=== PATIENT | female | born 1940 | race Caucasian/White ===

== ENCOUNTER 2018-12-10 11:51 | Inpatient (IN) ==
[2018-12-10] MEDS ORDERED: Morphine Inj 4 MG/ML Vial IV.PUSH ONE (12:05)
--- NOTE | 2018-12-10 12:12 | ED ---
HPI General Chief Complaint: STEMI Alert Stated Complaint: chest tightness/jaw pain x 2 days Time Seen by Provider: 12/10/18 11:55 Source: patient Mode of arrival: ambulatory Limitations: no limitations History of Present Illness MD complaint: Reports chest pain STEMI Alert: Yes Onset (ago): day(s) (2) Time: 03:00 Duration: constant (But it does wax and wane) Onset: during rest Pain location: Reports substernal Severity: mild Severity scale (1-10): 2 Quality: Reports tightness Pain radiation: Reports jaw/teeth Relieving factors: nothing Exacerbating factors: nothing Context: Denies recent illness, recent surgery, recent immobilization, recent travel, trauma/injury, new medications and history of DVT/PE Associated symptoms: Denies nausea, vomiting, diaphoresis and dyspnea Treatments prior to arrival chest pain: Reports none Related Data Home Medications Medication Instructions Recorded Confirmed levothyroxine 125 mcg PO DAILY 12/10/18 12/10/18 losartan 25 mg PO HS 12/10/18 12/10/18 Allergies Allergy/AdvReac Type Severity Reaction Status Date / Time No Known Allergies Allergy Verified 12/10/18 11:59 Review of Systems ROS: all other systems reviewed are negative [facility] Medical History Medical History Hypertension (Acute) Hypothyroid (Acute) Surgical History Surgical History Hx of appendectomy (Acute) Hx of dilation and curettage (Acute) Hx of laparoscopy (Acute) Hx of tonsillectomy (Acute) Social History Social History Substance History: No History of Abuse Second Hand Smoke Exposure: No Smoking Status: Former smoker How Often Do You Have a Drink Containing Alcohol: 4 or more times a week Immunization History Tetanus Immunization: Unsure Exam Const General: cooperative, healthy appearing and comfortable Orientation: alert, awake and oriented x3 HENMT Head: normal to inspection, normocephalic and atraumatic Eyes General: appearance normal, both eyes and all related structures Conjunctivae: conjunctivae normal Sclera: sclerae normal EOM: EOM intact bilaterally Neck Neck: normal visual inspection and full ROM Chest Chest: normal inspection of the chest Resp Effort & Inspection: normal respiratory effort and able to speak in complete sentences Auscultation: clear to auscultation bilaterally Cardio Rate: regular rate Rhythm: regular rhythm GI Inspection: normal to inspection Palpation: soft Back/Spine/Pelvis Cervical Spine: cervical ROM normal Thoracic/Lumbar Spine: thoraco-lumbar ROM normal Skin General: no rashes or lesions noted, turgor normal and dry skin Neuro General: alert, awake, oriented x3, moves all extremities and CN's II-XI intact bilaterally Extrem General: normal to inspection, full ROM and no pedal edema Psych Appearance: grossly normal Mental Status: mental status grossly normal Speech and Movement: speech and movement normal Mood: congruent mood Affect: normal affect Attitude: cooperative Thought Process: normal Thought Content: normal Judgment: judgment good Course Initial Documented Vital Signs Temperature 98.1 F 12/10/18 11:59 Pulse Rate 88 12/10/18 11:59 Respiratory Rate 18 12/10/18 11:59 Blood Pressure 137/70 12/10/18 11:59 Pulse Oximetry 96 12/10/18 11:59 Last Documented Vital Signs Temperature 98.1 F 12/10/18 11:59 Pulse Rate 88 12/10/18 11:59 Respiratory Rate 18 12/10/18 11:59 Blood Pressure 137/70 12/10/18 11:59 Pulse Oximetry 95 12/10/18 12:02 Critical Care Time Critical Care Time: Yes Total Critical Care Time: 25 Attestation: Time to perform other separately billable procedures was not included in the critical care time. My time did not include minutes spent treating any other patients simultaneously or on activities that did not directly contribute to the patient's treatment. The services I provided to this patient were to treat and/or prevent clinically significant deterioration due to acute inferior OR I provided critical care services requiring my management, as noted below: Chart data review, documentation time, medication orders and management, vital sign assessments/reviewing monitor data, ordering and reviewing lab tests, ordering and interpreting/reviewing x-rays and diagnostic studies, care of the patient and discussion of the patient with the admitting physicians Quality Measure Queries AMI Clinical Trial Participant: No ECG initial impression date: 12/10/18 ECG initial impression time: 11:55 Medical Decision Making MDM Narrative Medical decision making narrative: This is an 78-year-old patient who lives at home with her and takes care of her own ADLs who presents with a 2-day history of chest pain. It radiates to the jaw. It is continuous but does wax and wane. Her EKG shows a STEMI. She has been given aspirin. I have ordered morphine and Zofran for symptomatic relief. The patient is being taken to the [facility]. Medical Screen Exam Complete: Yes Emergency Medical Condition: Yes Differential Diagnosis Differential Diagnosis: Differential diagnosis of chest pain includes but is not limited to musculoskeletal pain, pulmonary embolism, acute coronary syndrome , pneumonia, pleurisy Lab Data Result diagrams: 12/10/18 12:05 12/10/18 12:05 Imaging Data Radiologist's impression: Chest X-Ray 12/10/18 12:02 CONCLUSION: No acute cardiopulmonary disease. ECG Data EKG Prior to Arrival: No Attestation: I personally reviewed and interpreted this ECG as follows: (Normal sinus rhythm with a rate of 87. She has ST segment elevation in the inferior leads.) Discharge Plan Discharge Disposition Patient Disposition: ED Admit(ED Internal Use Only) Discharge Order Discharge Orders: ED Use Only Admit Order (Routine); Ordered 12/10/18 Ordered By: Sahara Mark Discharge Details Diagnosis: ST elevation myocardial infarction (STEMI) Physicians Team ED Provider: Sahara Mark Rxs /Orders / Referrals /Forms Prescriptions: No Action levothyroxine 125 mcg Tablet 125 mcg PO DAILY RF: 0 losartan 25 mg Tablet 25 mg PO HS RF: 0 Discharge Instructions Patient Printed Instructions: Chest Pain (ED) Status ED Status: With Doctor
[2018-12-10] MEDS ORDERED: Heparin 10,000 UNITS/10 ML Vial (for IV use) ONE ×2 (12:13→12:21)
[2018-12-10] MEDS ORDERED: Nitroglycerin Drip Premix 0 MG/0 ML BOTTLE ONE (12:13)
--- NOTE | 2018-12-10 12:15 | XR ---
EXAM DATE: 12/10/2018 12:11 PM EST AGE/SEX: 78 years / Female INDICATIONS: STEMI ALERT. CLINICAL DATA: This is the patient's initial encounter. Patient reports that signs and symptoms have been present for 1 day and indicates a pain score of 6/10. MEDICAL/SURGICAL HISTORY: Hypertension. Hypothyroidism. Appendectomy. Tonsillectomy. COMPARISON: No prior exams available for comparison. FINDINGS: A single AP view of the chest demonstrates the lungs to be symmetrically aerated without evidence of mass, infiltrate or effusion. The cardiomediastinal contours are unremarkable. Osseous structures a re intact. CONCLUSION: No acute cardiopulmonary disease. Electronically signed by: Luke Cordero MD Board Certified Radiologist 12/10/2018 12:14 PM EST
[2018-12-10 12:18] LABS: Baso # (Auto) 0.1 th/mm3 (0.0-0.2); Baso % (Auto) 0.9 % (0.0-2.0); Eos # (Auto) 0.1 th/mm3 (0.0-0.4); Eos % (Auto) 0.7 % (0.0-4.0); Hematocrit 39.4 % (35.0-46.0); Hemoglobin 13.3 gm/dL (11.6-15.3); Lymph % (Auto) 24.5 % (9.0-44.0); Mean Corpuscular HGB Conc 33.7 % (32.0-36.0); Mean Corpuscular Hemoglobin 31.1 pg (27.0-34.0); Mean Corpuscular Volume 92.2 fL (80.0-100.0); Mean Platelet Volume 8.6 fL (7.0-11.0); Mono # (Auto) 0.5 th/mm3 (0.0-0.9); Mono % (Auto) 6.8 % (0.0-8.0); Neut # (Auto) 5.4 th/mm3 (1.8-7.7); Neut % (Auto) 67.1 % (16.0-70.0); Platelet Count 194 th/mm3 (150-450); Red Blood Count 4.28 mil/mm3 (4.00-5.30); White Blood Count 8.1 th/mm3 (4.0-11.0)
[2018-12-10] MEDS ORDERED: fentaNYL Citrate Inj 100 MCG/2 ML Ampul ONE ×2 (12:21→13:45)
[2018-12-10] MEDS ORDERED: Heparin/NS PF Inj 1,000 ML ONE ×2 (12:21→13:38)
[2018-12-10 12:27] LABS: Chloride 105 meq/L (98-107); Potassium 3.5 meq/L (3.5-5.1); Sodium 140 meq/L (136-145)
[2018-12-10 12:30] LABS: Albumin 3.8 g/dL (3.4-5.0); Anion Gap 7 meq/L (5-15); Blood Urea Nitrogen 14 mg/dL (7-18); Calcium 9.2 mg/dL (8.5-10.1); Carbon Dioxide 28.1 meq/L (21.0-32.0); Glucose,Random 108 mg/dL (74-106)
[2018-12-10 12:33] LABS: Alanine Aminotransferase 28 U/L (10-53); Aspartate Aminotransferase 66 U/L (15-37); Glomerular Filtration Rate 89 mL/min (>89)
[2018-12-10 12:35] LABS: Total Protein 7.3 g/dL (6.4-8.2)
[2018-12-10 12:36] LABS: Alkaline Phosphatase 103 U/L (45-117)
[2018-12-10 12:43] LABS: Troponin I 5.77 ng/mL (0.02-0.05)
[2018-12-10] MEDS ORDERED: Iohexol 350 MG/ML 100 ML Vial (for Cath Lab) IVCONTRAST ONE (13:15)
[2018-12-10] MEDS ORDERED: NITROPRUSSIDE 50 MG/2 ML ONE (13:18)
[2018-12-10] MEDS ORDERED: Tirofiban Inj 12,500 MCG/250 ML PLAST..BAG ONE (13:27)
[2018-12-10] MEDS ORDERED: Misc Info for Pharmacy OTHER STA (13:40)
[2018-12-10] MEDS ORDERED: Tirofiban Inj 12,500 MCG/250 ML PLAST..BAG IV.CONT SCH (14:00)
[2018-12-10] MEDS ORDERED: TIROFIBAN BOLUS IV.SIG ONE (14:05)
--- NOTE | 2018-12-10 14:16 | MB ---
cc: Elijah Biggs MD DATE: 12/10/2018 HISTORY OF PRESENT ILLNESS: Leigh is a very pleasant 78-year-old lady with history of hypertension. She developed chest pain on 12/08/2018; did not come to the ER until today 12/10/2018. I received a STEMI alert at 12:02 p.m. today. In the cathode maker, the patient appears to be in mild to moderate distress, still having chest pain. Otherwise, denies any fevers, chills, cough; GI or bleeding, PND, orthopnea, syncope or dizziness. PAST MEDICAL HISTORY: Per History of Present Illness. Also has a history of hypothyroidism. PAST SURGICAL HISTORY: Appendectomy, dilatation and curettage, laparoscopy, tonsillectomy. ALLERGIES: NONE. MEDICATIONS PRIOR TO ADMISSION: 1. Losartan 25 mg daily. 2. Levothyroxine 125 mcg daily. SOCIAL HISTORY: She is a former smoker. Currently, denies tobacco use. Drinks alcohol 4 or more times a week. MEDICATIONS: Received in the ER; aspirin 324 x1. PHYSICAL EXAMINATION: VITAL SIGNS: Temperature 98.1, pulse 88, blood pressure 137/70, respiratory rate 18, sats 95% on room air. GENERAL: She is alert and oriented x3, in mild to moderate distress. NECK: Supple. No JVD. No bruit. CARDIOVASCULAR: S1, S2. No murmurs, rubs, gallops. LUNGS: Clear to auscultation bilaterally. ABDOMEN: Soft, nontender, nondistended with positive bowel sounds. EXTREMITIES: Lower extremity edema. LABORATORY DATA: White count 8.1, hemoglobin 13.3, hematocrit 39.4, platelet count 194. Sodium 140, potassium 3.5, chloride 105, bicarbonate 28.1, BUN 14, creatinine 0.64, glucose 108, AST 66. Troponin 5.77. DIAGNOSTIC DATA: Her EKG shows normal sinus rhythm at 87 beats per minute. There are Q-waves in lead II, III, aVF; ST-elevation of 2 mm - 3 mm in lead II, III, aVF, slight ST depression V2, also 0.[address] segment elevation in V5, V6. IMAGING: Chest x-ray, no acute cardiopulmonary disease. DIAGNOSES: 1. Subacute ST-elevation myocardial infarction. 2. Hypertension. 3. Hypothyroidism. DISCUSSION: The patient received aspirin at [place] [facility]. PLAN: Emergent left heart catheterization. STEMI alert, has been called. I discussed the case with the ER physician at [place]. MD BRICE Falcon/merced , 01:40 PM , 01:47 PM
--- NOTE | 2018-12-10 14:30 | CATHPROC ---
[facility] HIS Report Study Information Study Number Admission Scheduled Start Study Start [id number] Dec 10 2018 11:51AM 12/10/2018 Dec 10 2018 12:10PM [facility] Cardiac Catheterization Admit Source Facility Department Transfer in from another acute care facility [facility] Physician and Clinical Staff Initial Elijah Sanderson Student Financial Aid Manager Fara Santiago RN Student Financial Aid ManagerCatalina Noguera RN Recorder Kassie Salazar,RT(R) (BS) Bernardoub Rhea Shaffer,FREDDIE TECH2 Procedures Performed Procedure Location (Site) Vessel Name Coronary Angiograms LCA Left Coronary Coronary Angiograms RCA Right Coronary L Heart Cath LV Gram-hand inj. 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 Description Size Mfg Part Number Used/Scraped [id number] 13:14 Chikka INTECC WIRE, ASAHI PROWATER 180CM 180CM Used *[id number] TRANSDUCER, TRUWAVE [id number] 12:11 VANEGAS FORBES * Used W/STOCKCOCK *[id number] 538-420 *[id number] 538-420 *[id number] *[id number] 538-421 *[id number] 538-421 *[id number] 12:11 [employer] BLANKET,WARM AIR CCL * Used *[id number] 12:11 [employer] PACK, CCL CUSTOM * Used *[id number] 12:11 [employer] PACER PEN, SKIN DUAL W/ RULER * Used *[id number] 13:14 MEDTRONIC BALLOON, 2.5 X 12MM EUPHORA 12MM Used *[id number] 13:16 MEDTRONIC STENT, 3.0 22 INTEGRITY 3.0 22 Used *[id number] 13:16 CoverMyMeds MEDICAL 30 EMMY INDEFLATOR Used *[id number] 14:15 [employer] MEDICAL SHEATH, FR6.5 PRELUDE 11CM FR 6.5 038ACT Used *[id number] 13:14 [employer] MEDICAL SHEATH, FR6.5 PRELUDE 11CM FR 6.5 038ACT Used *[id number] 12:11 [employer] MEDICAL WIRE, 3MMJ .035 180CM 180CM Used *[id number] 12:11 NAMIC MANIFOLD, 4 PORT * Used *[id number] 12:11 NYCOMED OMNIPAQUE, 350 MG, 150ML 150ML [id number] Used [id number] 12:11 TERUMO MEDICAL SHEATH, FR4 TERUMO (10CM) FR 4 Used *[id number] Equipment Model, Serial, Lot Number and Expiration Data Description Model Number Serial Number Lot Number Expiration Date STENT, 3.0 22 INTEGRITY [id number] 03-08-2020 WIRE, ASAHI PROWATER 180CM [id number] 04-10-2021 History: Current Medications Medication Dosage/Unit Route Frequency Last Date/Time Taken ASA History: Allergies Allergy Reaction No Known Allergies History: Symptoms/Diagnosis Selection Items Chest pain History: Stress Tests Stress or Imaging Studies Performed No History: Other Current Smoker Method Quit Packs a Day No Cigarettes 12 Years Ago 1 Labs Hgb (g/dl) Hct (%) WBC (l/cumm) Platelets (thousands) 11.60-17.00 35.00-51.00 4.00-11.00 150.00-450.00 13.3 39.4 8.1 194 Glucose (mg/dl) BUN (mg/dl) Creatinine (mg/dl) BUN:Creatinine (1:x) 74.00-106.00 7.00-18.00 0.50-1.30 10.00-20.00 108 14 0.6 23.3 Na (meq/l) K (meq/l) 136.00-145.00 3.50-5.10 140 3.5 Troponin I (ng/ml) CPK-MB (ng/ML) 0.02-0.05 0.50-3.60 5.77 Not Drawn Medication Medication Total Dose (Bolus/Oral) Medication Total Dosage/Unit 1% XYLOCAINE 20 mL AGGRASTAT BOLUS 37.5 mL FENTANYL 150 mcg HEPARIN 5500 units PLAVIX 300 mg VERSED 4 mg Medications (Bolus/Oral) Medication Time Given Dosage/Unit Administered By Reason FENTANYL 12/10/2018 1:07:18 PM 25 mcg Fara Santiago 25 mcg FENTANYL given in lab by Fara Santiago, RN via Peripheral IV. FENTANYL 12/10/2018 1:10:37 PM 25 mcg Fara Santiago 25 mcg FENTANYL given in lab by Fara Santiago RN via Peripheral IV. VERSED 12/10/2018 1:10:40 PM 1 mg Fara Santiago 1 mg VERSED given in lab by Fara Santiago RN via Peripheral IV. 1% XYLOCAINE 12/10/2018 1:12:11 PM 20 mL Elijah Biggs 20 mL 1% XYLOCAINE given in lab by Elijah Biggs in Right Groin via Subcutaneous. HEPARIN 12/10/2018 1:15:23 PM 5500 units Fara Santiago 5500 units HEPARIN given in lab by Fara Santiago RN via Peripheral IV. AGGRASTAT BOLUS 12/10/2018 1:26:28 PM 37.5 mL Fara Santiago 37.5 mL AGGRASTAT BOLUS given in lab by Fara Santiago RN via Peripheral IV. PLAVIX 12/10/2018 1:35:36 PM 300 mg Hesher, Catalina 300 mg PLAVIX given in lab by Catalina Penaloza RN via Oral. VERSED 12/10/2018 1:47:24 PM 1 mg Hesher, Catalina 1 mg VERSED given in lab by Catalina Penaloza RN via Peripheral IV. FENTANYL 12/10/2018 1:48:40 PM 25 mcg Hesher, Catalina 25 mcg FENTANYL given in lab by Catalina Penaloza RN via Peripheral IV. FENTANYL 12/10/2018 1:58:59 PM 25 mcg Hesher, Catalina 25 mcg FENTANYL given in lab by Catalina Penaloza RN via Peripheral IV. VERSED 12/10/2018 2:12:20 PM 1 mg Hesher, Catalina 1 mg VERSED given in lab by Catalina Penaloza RN via Peripheral IV. FENTANYL 12/10/2018 2:13:19 PM 25 mcg Hesher, Catalina 25 mcg FENTANYL given in lab by Catalina Penaloza RN via Peripheral IV. VERSED 12/10/2018 2:16:21 PM 1 mg Hesher, Catalina 1 mg VERSED given in lab by Catalina Penaloza RN via Peripheral IV. FENTANYL 12/10/2018 2:17:31 PM 25 mcg Hesher, Catalina 25 mcg FENTANYL given in lab by Catalina Penaloza RN via Peripheral IV. Medication (Drip) Medication Time Given Dosage/Unit Concentration/Unit Diluent (ml) Solution AGGRASTAT DRIP 12/10/2018 1:34:17 PM 0.15 mcg/kg/min 12.5 mg 250 NaCl .9 0.15 mcg/kg/min AGGRASTAT DRIP given in lab by Fara Santiago, LUÍS via Peripheral IV. Pump/Drip Flow = 14.2 ml/hr using NaCl .9 with a concentration of 12.5 mg in 250 ml. IV Solutions 12/10/2018 12:55:21 PM 50 mL (IV) 500 NaCl .9 IV Solutions given in lab by Fara Santiago, LUÍS via Peripheral IV. Pump/Drip Flow using NaCl .9. NIPRIDE 12/10/2018 1:20:40 PM 100 mcg 100 mcg NIPRIDE given in lab by Rhea Shaffer RCIS TECH2 in Right Groin via Intra-coronary. NIPRIDE 12/10/2018 1:21:49 PM 100 mcg 100 mcg NIPRIDE given in lab by Rhea Shaffer RCIS TECH2 in Right Groin via Intra-coronary. Initial Case Assessment Cardiovascular HR Rhythm NIBP Chest Pain 99 stemi 148/84 4 Edema Present Skin color Skin None Normal Warm Dry Circulatory - Right Pulses Dorsalis Pedis Femoral 2 2 Scale (0,1,2,3,4,d) Circulatory - Left Pulses Dorsalis Pedis Femoral 2 2 Scale (0,1,2,3,4,d) Circulatory - Lower Extremities Color Lower Right Color Lower Left Normal Normal Neurological State Oriented to time-place- Alert Moves all extremities person Respiration - General Respiration Rate SpO2 (%) (B/min) 8 100 Chronological Log Time Study Chronological Log 12:05:17 [facility] notified that [facility] is ready. 12:26:20 [facility] notified clinical laboratory medical director they are on the way 12:50:26 Patient arrived via Bed. 12:51:40 Patient Name, D.O.B, / Armband Verified By R.N. 12:51:42 Consent signed by the physician and the patient and verified by the [facility] staff. 12:51:46 Pre-op and post- op instructions given; patient acknowledges understanding of instructions. 12:51:48 Presedation assessment performed by [facility] RN. 12:51:52 Skin Breakdown- 12:51:59 Patient Warmer Placed on the Table. 12:52:01 Disposable Defibrillator pads placed On Patient by clinical laboratory medical director staff. Did not arrive with them on. 12:52:16 Shiv Prominences Protected 12:52:19 A # 18 IV was noted in the Antecubital (left). Grade = 0 12:52:23 History and physical on the chart or being dictated. Assessment: Initial Case, HR=99 BPM, Rhythm=stemi, KQAN=574/84 mmhg, Chest Pain=4, Edema=None, Color=Normal, Skin = Warm, Dry Right Pulses: Eleazar Ped=2, Femoral=2 Left Pulses: Eleazar Ped=2, Femoral=2 12:52:24 Lower Right Extremities: Color=Normal Lower Left Extremities: Color=Normal Neurological: State=Alert, Ox3, SAHNI Respiration: Resp=8 B/min, AmB2=443 % 12:52:25 Table restraints applied according to hospital policy 12:55:21 IV Solutions given in lab by Fraa Santiago, RN via Peripheral IV. Pump/Drip Flow using Na Cl .9. 12:56:00 A # 20 IV was noted in the Forearm (right). Grade = 0 12:57:22 MD paged 12:58:09 MD responded Vitals capture started with the following parameters, Patient=Adult, Interval=5 min, Initial Pr luxpll=956 mmHg, 12:58:55 Deflation Rate=5 mmHg, Cuff placed on Left Arm 12:59:56 HR=81 bpm, WBIU=770/84 mmhg, SpO2=99.0 %, Resp=13 B/min, Pain=4, Alize=10, Oseguera=2 13:01:26 Pressure channel 1 zeroed. 13:02:39 Reference ECG taken 13:05:16 HR=81 bpm, NIBP=97/58 mmhg, VcD8=238.0 %, Resp=13 B/min, Pain=4, Alize=10, Oseguera=2 13:07:18 25 mcg FENTANYL given in lab by Fara Santiago, LUÍS via Peripheral IV. 13:10:23 HR=86 bpm, XHRD=811/97 mmhg, VdQ7=583.0 %, Resp=18 B/min, Pain=4, Alize=10, Oseguera=2 13:10:37 25 mcg FENTANYL given in lab by Fara Santiago, RN via Peripheral IV. 13:10:40 1 mg VERSED given in lab by Fara Santiago, LUÍS via Peripheral IV. 13:10:57 MD arrived Time Out. Correct patient, correct procedure, correct physician, labs, allergies, and equipment verified with clinical laboratory medical director 13:11:56 team present. Fire risk assesment completed (see hard stop sheet for coding). Time Out Conc urred by MD and individual staff in procedure. 13:12:05 Case Start 13:12:11 20 mL 1% XYLOCAINE given in lab by Elijah Biggs in Right Groin via Subcutaneous. 13:12:58 Access site was Right Femoral Artery. 13:13:05 A SHEATH, FR6.5 PRELUDE 11CM FR 6.5 was advanced into the Fem Art (right) using the Percuta neous technique. A JR 4.0 GUIDE CATHETER FR 6 was advanced over a wire. OMNIPAQUE, 350 MG, 150ML 150ML was used for 13:13:43 injections. 13:15:02 HR=80 bpm, RHZM=890/68 mmhg, DlT9=365.0 %, Resp=8 B/min, Pain=4, Alize=10, Oseguera=2 13:15:23 5500 units HEPARIN given in lab by Fara Santiago RN via Peripheral IV. 13:15:33 The RCA was injected and visualized at various angles. OMNIPAQUE, 350 MG, 150ML 150ML used . 13:15:46 OMNIPAQUE, 350 MG, 150ML 150ML and 30 EMMY INDEFLATOR added. 13:16:02 A WIRE, ASAHI PROWATER 180CM 180CM was inserted via Fem Art (right). Recorded Pressure: Ao, HR=79, Condition=Condition 1 13:16:03 (Aorta) Ao 141/62/96 A BALLOON, 2.5 X 12MM EUPHORA 12MM was inserted over WIRE, ASAHI PROWATER 180CM 180CM via the F em Art 13:16:59 (right). A BALLOON, 2.5 X 12MM EUPHORA 12MM over a WIRE, ASAHI PROWATER 180CM 180CM in the RCA Mid was i nflated 13:17:11 using a 30 EMMY INDEFLATOR at 12 emmy for 15 sec. An STENT, 3.0 22 INTEGRITY 3.0 22 Bare Metal Stent was inserted through a JR 4.0 GUIDE CATHETER FR 6 over a 13:18:26 WIRE, Chikka PROWATER 180CM 180CM. A STENT, 3.0 22 INTEGRITY 3.0 22 was deployed using a 30 EMMY INDEFLATOR at 18 atmospheres for 1 5 seconds in 13:18:38 the RCA Mid. 13:19:34 HR=87 bpm, CMTJ=961/65 mmhg, AbW3=883.0 %, Resp=12 B/min, Pain=4, Alize=10, Oseguera=2 13:20:30 ACT (Normal Range 90-180) = 308 13:20:40 100 mcg NIPRIDE given in lab by Rhea Shaffer RCIS TECH2 in Right Groin via Intra-coronary. 13:21:07 Activated Clotting Time Drawn 13:21:49 100 mcg NIPRIDE given in lab by Rhea Shaffer RCIS TECH2 in Right Groin via Intra-coronary. 13:22:34 Wire removed 13::42 Catheter was removed A JR 4.0 INFINITI CATHETER FR 4 was advanced over a wire. OMNIPAQUE, 350 MG, 150ML 150ML was us ed for 13:22:46 injections. Recorded Pressure: LV, HR=83, Condition=Condition 1 13:24:05 (Left Ventricle) LV 128/9/18 13:24:15 The LV was manually injected with 8 cc's and visualized. OMNIPAQUE, 350 MG, 150ML 150ML use d. Recorded Pressure: LV, Ao, HR=78, Condition=Condition 1 13:24:21 (Left Ventricle) LV 131/6/18, (Aorta) Ao 131/60/92 13:24:33 HR=85 bpm, VKBT=907/73 mmhg, TdL9=688.0 %, Resp=15 B/min, Pain=4, Alize=10, Oseguera=2 13:25:29 Catheter was removed A JL 4.0 INFINITI CATHETER FR 4 was advanced over a wire. OMNIPAQUE, 350 MG, 150ML 150ML was us ed for 13:25:31 injections. 13:26:00 The LCA was injected and visualized at various angles. OMNIPAQUE, 350 MG, 150ML 150ML used . 13:26:28 37.5 mL AGGRASTAT BOLUS given in lab by Fara Santiago, LUÍS via Peripheral IV. 13:27:18 Catheter was removed 13:27:22 Case End (Physician broke scrub) 13:28:40 Catheter(s) removed without difficulty 13:28:43 In the Fem Art (right) the SHEATH, FR6.5 PRELUDE 11CM FR 6.[address] by Elijah Prescott. 13:28:57 No case complications noted. 13:29:01 Bedside Report will be given. 13:29:02 Implantable Device card placed in patient's chart. 13:29:05 A Left Heart Cath was performed. 13:29:32 HR=84 bpm, SEDZ=357/73 mmhg, SpO2=99.0 %, Resp=29 B/min, Pain=4, Alize=10, Oseguera=2 0.15 mcg/kg/min AGGRASTAT DRIP given in lab by Fara Santiago, LUÍS via Peripheral IV. Pump/Drip Flow = 14.2 ml/hr 13:34:17 using NaCl .9 with a concentration of 12.5 mg in 250 ml. 13:34:33 QADG=401/78 mmhg, Pain=4, Alize=10, Oseguera=2 13:35:36 300 mg PLAVIX given in lab by Catalina Penaloza, LUÍS via Oral. 13:36:35 Vitals capture stopped. 13:38:21 Patient complaining of chest pain. directed staff to prep patient again so he can take m ore pictures. Vitals capture started with the following parameters, Patient=Adult, Interval=5 min, Initial Pr wunqrw=615 mmHg, 13:39:52 Deflation Rate=5 mmHg, Cuff placed on Left Arm 13:40:28 HR=84 bpm, NLWP=939/82 mmhg, SpO2=96.0 %, Resp=12 B/min, Pain=8, Alize=10, Oseguera=2 13:46:12 HR=82 bpm, SDNP=265/75 mmhg, PnU5=842.0 %, Resp=18 B/min, Pain=8, Alize=10, Oseguera=2 13:47:07 Bilateral groins prepped with 2% chlorhexidine, and draped after a 3 minute waiting time. 13:47:24 1 mg VERSED given in lab by Catalina Penaloza, LUÍS via Peripheral IV. 13:48:40 25 mcg FENTANYL given in lab by Catalina Penaloza RN via Peripheral IV. 13:50:32 HR=82 bpm, OGCW=463/54 mmhg, EaJ5=368.0 %, Resp=7 B/min, Pain=8, Alize=10, Oseguera=2 13:52:34 Pressure channel 1 zeroed. 13:53:38 MD paged 13:55:31 HR=81 bpm, PRMO=024/65 mmhg, SpO2=97.0 %, Resp=10 B/min, Pain=8, Alize=10, Oseguera=2 13:58:59 25 mcg FENTANYL given in lab by Catalina Penaloza, LUÍS via Peripheral IV. 14:00:30 HR=80 bpm, STPQ=290/69 mmhg, SpO2=98.0 %, Resp=20 B/min, Pain=8, Alize=10, Oseguera=2 14:05:29 HR=80 bpm, OIRE=982/76 mmhg, CvO0=178.0 %, Resp=8 B/min, Pain=8, Alize=10, Oseguera=2 14:06:20 MD responded 14:10:32 HR=81 bpm, CMBR=391/72 mmhg, WuT6=001.0 %, Resp=10 B/min, Pain=9, Alize=10, Oseguera=2 14:12:13 Activated Clotting Time Drawn 14:12:20 1 mg VERSED given in lab by Catalina Penaloza RN via Peripheral IV. 14:12:27 MD arrived 14:13:19 25 mcg FENTANYL given in lab by Catalina Penaloza RN via Peripheral IV. A SHEATH, FR6.5 PRELUDE 11CM FR 6.5 was exchanged in the Fem Art (right). This was necessary in order to insure 14:14:37 sterility. A JR 4.0 INFINITI CATHETER FR 4 was advanced over a wire. OMNIPAQUE, 350 MG, 150ML 150ML was us ed for 14:15:01 injections. 14:15:33 HR=79 bpm, LEIQ=931/67 mmhg, SpO2=99.0 %, Resp=10 B/min, Pain=9, Alize=10, Oseguera=2 Recorded Pressure: Ao, HR=81, Condition=Condition 1 14:15:34 (Aorta) Ao 148/72/105 14:16:10 Catheter was removed 14:16:11 ACT (Normal Range 90-180) = 246 14:16:21 1 mg VERSED given in lab by Catalina Penaloza, RN via Peripheral IV. A JL 4.0 INFINITI CATHETER FR 4 was advanced over a wire. OMNIPAQUE, 350 MG, 150ML 150ML was us ed for 14:16:32 injections. 14:17:25 The LCA was injected and visualized at various angles. OMNIPAQUE, 350 MG, 150ML 150ML used . 14:17:31 25 mcg FENTANYL given in lab by Catalina Penaloza, RN via Peripheral IV. 14:17:52 Catheter was removed 14:18:20 Case End (Physician broke scrub) 14:21:09 HR=83 bpm, NIBP=60/25 mmhg, SpO2=98.0 %, Resp=13 B/min, Pain=9, Alzie=10, Oseguera=2 14:22:31 HR=83 bpm, RXUN=779/75 mmhg, SpO2=94.0 %, Resp=6 B/min, Pain=9, Alize=10, Oseguera=2 14:27:03 Vitals capture stopped. 14:29:04 Patient moved to bed End Study - Contrast Media Used In Study Contrast Total Opened (mL) Total Used (mL) Total Wasted (mL) Omnipaque 350 65 65 0 Omnipaque 350 30 30 0 End Study - Maximum Contrast Load Max Contrast Load (mL) 658.3 End Study - Radiation Exposure Fluoro Time Fluoro Dose (mGy) Cine Dose (uGym2) (minutes) 3.7 910 4713 End Study - Patient Disposition Complications Transferred To Interventional Outcome No Telemetry Bed successful
--- NOTE | 2018-12-10 14:44 | MB ---
cc: Elijah Biggs MD DATE: 12/10/2018 PROCEDURE: Left heart catheterization, coronary angiography. INDICATION: Severe recurrent chest pain, status post PCI of the right coronary artery. Chest pain increased to 9/10, unrelieved with fentanyl and Versed. PROCEDURE IN DETAIL: The 6-Mongolian sheath was exchanged under sterile conditions for his new sterile 6-Mongolian sheath using a double glove technique, a 4-Mongolian JR4 and JL4 catheter were used to perform left and right coronary angiography. Right coronary angiography revealed a widely patent stent in the proximal mid right coronary artery with NICKO 3 flow and no significant obstructive disease proximal and distal to the vessel. Left main, LAD, left circumflex vessel coronary angiography revealed no significant stenosis. CONCLUSION: Severe worsening recurrent chest pain, status post percutaneous coronary intervention; probably due to the subacute presentation with symptoms preceding presentation by 48 hours and high degree of organized thrombus at the lesion site, which is probably obstructing the microvascular flow and leading to the patient's chest pain. The patient was bolused with 200 mcg of intracoronary nipride with some relief of the pain. We will continue Aggrastat drip per protocol. The patient's ACT at the time of repeat angiography was 246. We will continue Plavix 75 mg daily, aspirin 162 mg daily and p.r.n. Versed and fentanyl for pain management. Elijah Biggs MD AWC/merced , 02:22 PM , 02:29 PM
--- NOTE | 2018-12-10 14:57 | MR ---
cc: Elijah Biggs MD DATE: 12/10/2018 PROCEDURE: Left heart catheterization, left ventriculography, coronary angiography, PCI with a bare metal stent of the proximal mid right coronary artery. INDICATIONS FOR PROCEDURE: Subacute STEMI, coronary artery disease, [place] Cardiovascular Class IV angina. PROCEDURE IN DETAIL: The patient was brought to the cardiac catheterization laboratory, prepped and draped in the usual sterile fashion; 10 mL of 1% lidocaine was used to anesthetize the right common femoral artery. A 6-Bangladeshi sheath was placed in right common femoral artery. A 6-Bangladeshi JR4 guide was placed in the right coronary artery. There was a long complex 99% stenosis in the proximal mid LAD with evidence of a diffuse thrombus at the lesion site. An 8.0 ____ guidewire was placed into the distal right PDA. The patient was given 70 units mL/kg of heparin. ACT was 304. A 2.5 x 12 Euphora balloon was used to predilate the lesion; two inflations of 10 atmospheres for 20 seconds. A 3.0 x 22 Integrity stent was then placed in the lesion site and deployed one inflation 18 atmospheres for 20 seconds. Stenosis was at 99% with NICKO 2 flow to 0% with NICKO 3 flow. Note the patient's chest pain did improve after stent placement. We also infused her with 200 mcg of intracoronary nitroprusside in 100 mcg increments as the patient had a subacute presentation and a presumption that the thrombus was quite organized given the 48 hours of symptoms prior to presentation and the persistent chest pain despite reperfusion of the vessel. I then used 4-Bangladeshi JR4 and JL4 diagnostic catheters to perform left ventriculography and left coronary angiography. LV pressure is 130/90-10, EF 55%. The posterior wall appears to be mild to moderately hypokinetic. The left main coronary artery has no significant disease angiographically. Left circumflex vessel has no significant disease angiographically. There is a high obtuse marginal vessel, which has a reference vessel diameter of 2.5 cm with no significant disease angiographically. The second and third obtuse marginal vessels are 0.5 mm - 1.0 mm vessels with no significant disease angiographically. Fourth obtuse marginal vessel is a 2.25-2.5 mm reference vessel diameter proximally with no significant disease angiographically. Remainder of the AV groove and left circumflex vessel has no significant disease angiographically. The LAD is non-transapical. It is tortuous in the mid segment with sequential 180 degree bends and mild diffuse disease in the mid segment up to 10% angiographically. There is a medium size diagonal vessel. Reference vessel diameter 2.5 mm with no significant disease angiographically. CONCLUSION: 1. Subacute ST-elevation myocardial infarction with symptoms preceding presentation by at least 48 hours. Q-waves in the inferior leads with persistently ST elevation in the inferior leads. Culprit, subtotally occluded proximal mid right coronary artery as detailed above with a significant amount of thrombus present at the lesion site number. 2. Otherwise, mild one-vessel coronary artery disease in right dominant system. 3. Preserved left ventricular systolic function with [id number] hypokinesis of the posterior wall, mid inferior wall as detailed above. 4. Successful percutaneous coronary intervention with bare metal stent of the proximal mid right coronary artery from 99% with NICKO 2-3 flow to 0% with NICKO 3 flow. 5. Note, final ACT of 304. PLAN: Patient will be treated with double bolus and drip per protocol Aggrastat, 600 mg of p.o. Plavix and then 75 mg a day for 12-15 months; aspirin 162 mg daily indefinitely. We will treat with statin, JASON inhibitor and beta akila as clinically and hemodynamically tolerated. MD BRICE Falcon/merced/lorie , 01:35 PM , 01:44 PM
--- NOTE | 2018-12-10 15:39 | P.HPIM ---
History of Present Illness Primary Care Physician: Corona Rubio MD History of Present Illness: 78 yo F with h/o HTN and Hypothyroidism who presented with 2 day h/o chest pressure radiating to the jaw and left arm. Patient thought it was indigestion initially. She presented to [facility] today,ECG showed ST elevation in inferior leads with qwaves, and STEMI alert was called. Patient was evaluated by Dr. Biggs, left heart catheterization culprit lesion was thought to be a subtotally occluded proximal mid RCA lesion with significant amount of thrombus, PCI with bear metal stent. Patient is currently on Tirofiban drip, aspirin,plavix,carvedilol, and ramipril. She is complaining of soreness of left side of her chest at present. No chest pressure. Other than that she feels fine. Labs reviewed. Inpatient Certification Inpatient Certification: I certify that the inpatient services were ordered in accordance with Medicare regulations governing the order. This includes certification that hospital inpatient services are reasonable and necessary and in the case of services not specified as inpatient-only under 42 CFR 419.22(n), that they are appropriately provided as inpatient services in accordance to with the 2-midnight benchmark under 43 CFR 412.3(e) Estimated Total Length of Stay (Days): 3 Plans for Post Hospital Care: Home [facility] Medical History Medical History Hypertension (Acute) Hypothyroid (Acute) Surgical History Surgical History Hx of appendectomy (Acute) Hx of dilation and curettage (Acute) Hx of laparoscopy (Acute) Hx of tonsillectomy (Acute) Social History Social History Substance History: No History of Abuse Second Hand Smoke Exposure: No Smoking Status: Former smoker How Often Do You Have a Drink Containing Alcohol: 4 or more times a week Immunization History Tetanus Immunization: Unsure Medications and Allergies Allergies Allergy/AdvReac Type Severity Reaction Status Date / Time No Known Allergies Allergy Verified 12/10/18 11:59 Home Medications Medication Instructions Recorded Confirmed Type levothyroxine 125 mcg PO DAILY 12/10/18 12/10/18 History losartan 25 mg PO HS 12/10/18 12/10/18 History Active Medications: Active Medications Aspirin (Aspirin Chew) 162 mg PO DAILY [facility] Carvedilol (Coreg) 3.125 mg PO BID [facility] Clopidogrel Bisulfate (Plavix) 75 mg PO DAILY [facility] Tirofiban/Sodium Chloride (Aggrastat Inj) 12,500 mcg in 250 mls @ 0 mls/hr IV.CONT .Q0M KATHIE; Protocol Ramipril (Altace) 2.5 mg PO DAILY [facility] Sodium Chloride (Ns Flush) 2 ml IV.FLUSH BID KATHIE Sodium Chloride (Ns Flush) 2 ml IV.FLUSH PRN PRN PRN Reason: FLUSH AFTER USING IV ACCESS Physical Exam Vital signs: Vital Signs 12/10/18 11:59 12/10/18 12:02 12/10/18 12:23 Temperature 98.1 F Pulse Rate 88 78 Respiratory Rate 18 Blood Pressure 137/70 Pulse Oximetry 96 97 97 Intake & Output 12/09/18 12/10/18 12/10/18 18:59 06:59 18:59 Intake Total 470 / 470 Balance 470 / 470 Weight 78.7 kg Intake: IV 20 / 20 Heparin/NS PF Inj 1,000 ML @ 0 20 / 20 mls/hr [id number] Anesthesia Amount 450 / 450 Narrative: GENERAL: elderly lady laying in bed, not in distress. NECK:no JVD CARDIOVASCULAR: Regular rate and rhythm without murmurs, gallops, or rubs. RESPIRATORY: Clear to auscultation. Breath sounds equal bilaterally. No wheezes , rales, or rhonchi. GASTROINTESTINAL: Abdomen soft, non-tender, nondistended. Normal active bowel sounds MUSCULOSKELETAL: Extremities without clubbing, cyanosis, or edema. NEURO: Alert & Oriented x4 to person, place, time, situation. Moves all ext x4 Results Labs CBC & Chem 7: 12/11/18 04:15 12/11/18 04:15 Imaging Impressions Chest X-Ray 12/10/18 12:02 CONCLUSION: No acute cardiopulmonary disease. Caprini VTE Risk Assessment Caprini VTE Risk Assessment: Moderate/High Risk (score >= 2) Caprini Risk Assessment Model: Point Value = 1 Point Value = 2 Point Value = 3 Point Value = 5 Age 41-60 Minor surgery BMI > 25 kg/m2 Swollen legs Varicose veins or History of unexplained or recurrent spontaneous Oral contraceptives or hormone replacement Sepsis (< 1 month) Serious lung disease, including pneumonia (< 1 month) Abnormal pulmonary function Acute myocardial infarction Congestive heart failure (< 1 month) History of inflammatory bowel disease Medical patient at bed rest Age 61-74 Arthroscopic surgery Major open surgery (> 45 min) Laparoscopic surgery (> 45 min) Malignancy Confined to bed (> 72 hours) Immobilizing plaster cast Central venous access Age >= 75 History of VTE Family history of VTE Factor V Leiden Prothrombin [id number] Lupus anticoagulant Anticardiolipin antibodies Elevated serum homocysteine Heparin-induced thrombocytopenia Other congenital or acquired thrombophilia Stroke (< 1 month) Elective arthroplasty Hip, pelvis, or leg fracture Acute spinal cord injury (< 1 month) Prophylaxis Regimen: Total Risk Factor Score Risk Level Prophylaxis Regimen 0-1 Low Early ambulation 2 Moderate Order ONE of the following: *Sequential Compression Device (SCD) *Heparin 5000 units SQ BID 3-4 Higher Order ONE of the following medications: *Heparin 5000 units SQ TID *Enoxaparin/Lovenox 40 mg SQ daily (WT < 150 kg, CrCl > 30 mL/min) *Enoxaparin/Lovenox 30 mg SQ daily (WT < 150 kg, CrCl > 10-29 mL/min) *Enoxaparin/Lovenox 30 mg SQ BID (WT < 150 kg, CrCl > 30 mL/min) AND/OR *Sequential Compression Device (SCD) 5 or more Highest Order ONE of the following medications: *Heparin 5000 units SQ TID (Preferred with Epidurals) *Enoxaparin/Lovenox 40 mg SQ daily (WT < 150 kg, CrCl > 30 mL/min) *Enoxaparin/Lovenox 30 mg SQ daily (WT < 150 kg, CrCl > 10-29 mL/min) *Enoxaparin/Lovenox 30 mg SQ BID (WT < 150 kg, CrCl > 30 mL/min) AND *Sequential Compression Device (SCD) Assessment and Plan Plan 78 yo F with h/o HTN and Hypothyroidism who presented with 2 day h/o chest pressure radiating to the jaw and left arm,admitted with subacute STEMI of inferior region and is now s/p [facility], PCI with bear metal stent to mid RCA by . Cont Tirofiban drip, Aspirin 162mg, Plavix 75mg, Carvedilol 3.125mg bid, Ramipril 2.5mg. cardiology following.
[2018-12-10] MEDS ORDERED: Acetaminophen 325 MG Tablet PO PRN (17:37)
[2018-12-11 04:43] LABS: Baso % (Auto) 0.8 % (0.0-2.0); Eos # (Auto) 0.1 th/mm3 (0.0-0.4); Eos % (Auto) 1.5 % (0.0-4.0); Hematocrit 34.4 % (35.0-46.0); Hemoglobin 11.5 gm/dL (11.6-15.3); Lymph # (Auto) 1.8 th/mm3 (1.0-4.8); Lymph % (Auto) 32.6 % (9.0-44.0); Mean Corpuscular HGB Conc 33.4 % (32.0-36.0); Mean Corpuscular Hemoglobin 31.5 pg (27.0-34.0); Mean Corpuscular Volume 94.4 fL (80.0-100.0); Mean Platelet Volume 8.7 fL (7.0-11.0); Mono # (Auto) 0.5 th/mm3 (0.0-0.9); Mono % (Auto) 8.7 % (0.0-8.0); Neut # (Auto) 3.1 th/mm3 (1.8-7.7); Neut % (Auto) 56.4 % (16.0-70.0); Platelet Count 156 th/mm3 (150-450); Red Blood Count 3.64 mil/mm3 (4.00-5.30); Red Cell Distribution Width 14.2 % (11.6-17.2); White Blood Count 5.5 th/mm3 (4.0-11.0)
[2018-12-11 04:55] LABS: Anion Gap 7 meq/L (5-15); Blood Urea Nitrogen 11 mg/dL (7-18); Calcium 7.6 mg/dL (8.5-10.1); Carbon Dioxide 27.5 meq/L (21.0-32.0); Chloride 108 meq/L (98-107); Cholesterol 160 mg/dL (120-200); Glomerular Filtration Rate Greater Than 89 mL/min (>89); Glucose,Random 114 mg/dL (74-106); Potassium 3.7 meq/L (3.5-5.1); Sodium 142 meq/L (136-145); Triglycerides 75 mg/dL (42-150)
[2018-12-11 04:57] LABS: Chol/HDL Ratio 2.37 Ratio; Creatine Kinase 374 U/L (26-192); HDL Cholesterol 67.3 mg/dL (40.0-60.0); LDL Cholesterol,Calculated 78 mg/dL (0-99)
[2018-12-11 05:19] LABS: Creatine Kinase MB 37.7 ng/mL (0.5-3.6)
[2018-12-11 05:29] LABS: CKMB Percent 10.1 % (0.0-4.0)
[2018-12-11] MEDS: Ramipril 2.5 MG Capsule PO SCH (09:28)
--- NOTE | 2018-12-11 09:35 | P.PNIM ---
Subjective Interval history: D/w bedside nurse, no acute events reported overnight. patient reports feeling well.No chest pressure or tightness. She had some back pain overnight which she attributes to an uncomfortable bed, feels better now that she is seated out in chair. Physical Exam Vital signs: Vital Signs 12/10/18 11:59 12/10/18 12:02 12/10/18 12:23 Temperature 98.1 F Pulse Rate 88 78 Respiratory Rate 18 Blood Pressure 137/70 Pulse Oximetry 96 97 97 12/10/18 14:45 12/10/18 15:00 12/10/18 15:15 Temperature 97.5 F L Pulse Rate 87 82 86 Respiratory Rate 16 16 16 Blood Pressure 140/63 139/69 149/69 H Pulse Oximetry 93 L 95 99 12/10/18 15:30 12/10/18 15:45 12/10/18 16:00 Temperature Pulse Rate 81 82 85 Respiratory Rate 16 16 16 Blood Pressure 130/60 137/57 L 135/63 Pulse Oximetry 95 96 94 L 12/10/18 16:30 12/10/18 17:00 12/10/18 18:00 Temperature Pulse Rate 81 79 78 Respiratory Rate 16 16 16 Blood Pressure 139/61 139/63 140/71 Pulse Oximetry 91 L 96 94 L 12/10/18 20:00 12/10/18 20:56 12/11/18 00:00 Temperature 99.1 F 98.7 F Pulse Rate 80 79 Respiratory Rate 16 16 Blood Pressure 132/61 130/61 Pulse Oximetry 95 95 94 L 12/11/18 04:00 Temperature 98.8 F Pulse Rate 78 Respiratory Rate 16 Blood Pressure 136/63 Pulse Oximetry 93 L Intake & Output 12/10/18 12/11/18 12/11/18 18:59 06:59 18:59 Intake Total 1036 / 1036 184 / 184 Output Total 100 / 100 Balance 1036 / 1036 84 / 84 Weight 78.7 kg 88 kg Intake: IV 86 / 86 184 / 184 Heparin/NS PF Inj 1,000 ML @ 0 20 / 20 mls/hr .ROUTE .[facility] Rx#: [id number] Aggrastat Inj 12,500 mcg In 250 66 / 66 ml @ 0 mls/hr .ROUTE .[facility] Rx#:[id number] Oral 500 / 500 Anesthesia Amount 450 / 450 Output: Urine 100 / 100 Other: # Voids 2 2 # Bowel Movements 0 Narrative: GENERAL: elderly lady laying in bed, not in distress. NECK:no JVD CARDIOVASCULAR: Regular rate and rhythm without murmurs, gallops, or rubs. RESPIRATORY: Clear to auscultation. Breath sounds equal bilaterally. No wheezes , rales, or rhonchi. GASTROINTESTINAL: Abdomen soft, non-tender, nondistended. Normal active bowel sounds MUSCULOSKELETAL: Extremities without clubbing, cyanosis, or edema. NEURO: Alert & Oriented x4 to person, place, time, situation. Moves all ext x4 Results Labs CBC & Chem 7: 12/11/18 04:15 12/12/18 07:33 Imaging Imaging: Impressions Chest X-Ray 12/10/18 12:02 CONCLUSION: No acute cardiopulmonary disease. Assessment and Plan Plan 78 yo F with h/o HTN and Hypothyroidism who presented with 2 day h/o chest pressure radiating to the jaw and left arm,admitted with subacute STEMI of inferior region and is now s/p [facility], PCI with bear metal stent to mid RCA by . Cont Tirofiban drip, Aspirin 162mg, Plavix 75mg, Carvedilol 3.125mg bid, Ramipril 2.5mg. cardiology following. Progress Note: Quality AMI Clinical Trial Participant: No
--- NOTE | 2018-12-11 12:08 | P.PNCA ---
Subjective Interval history: alert in nad, assymptomatic, state she feels alot better Medications and Allergies Active Medications: Active Medications Acetaminophen (Tylenol) 650 mg PO Q4H PRN PRN Reason: PAIN SCALE 1 TO 10 Last Admin: 12/10/18 18:19 Dose: 650 mg Aspirin (Aspirin Chew) 162 mg PO DAILY [facility] Last Admin: 12/11/18 09:28 Dose: 162 mg Carvedilol (Coreg) 3.125 mg PO BID [facility] Last Admin: 12/11/18 09:28 Dose: 3.125 mg Clopidogrel Bisulfate (Plavix) 75 mg PO DAILY [facility] Last Admin: 12/11/18 09:28 Dose: 75 mg Tirofiban/Sodium Chloride (Aggrastat Inj) 12,500 mcg in 250 mls @ 0 mls/hr IV.CONT .Q0M [facility]; Protocol Ramipril (Altace) 2.5 mg PO DAILY [facility] Last Admin: 12/11/18 09:28 Dose: 2.5 mg Sodium Chloride (Ns Flush) 2 ml IV.FLUSH BID [facility] Last Admin: 12/11/18 09:28 Dose: 2 ml Sodium Chloride (Ns Flush) 2 ml IV.FLUSH PRN PRN PRN Reason: FLUSH AFTER USING IV ACCESS Allergies Allergy/AdvReac Type Severity Reaction Status Date / Time No Known Allergies Allergy Verified 12/10/18 11:59 Home Medications Medication Instructions Recorded Confirmed Type levothyroxine 125 mcg PO DAILY 12/10/18 12/10/18 History losartan 25 mg PO HS 12/10/18 12/10/18 History Physical Exam Vital signs: Vital Signs 12/10/18 12:23 12/10/18 14:45 12/10/18 15:00 Temperature 97.5 F L Pulse Rate 87 82 Respiratory Rate 16 16 Blood Pressure 140/63 139/69 Pulse Oximetry 97 93 L 95 12/10/18 15:15 12/10/18 15:30 12/10/18 15:45 Temperature Pulse Rate 86 81 82 Respiratory Rate 16 16 16 Blood Pressure 149/69 H 130/60 137/57 L Pulse Oximetry 99 95 96 12/10/18 16:00 12/10/18 16:30 12/10/18 17:00 Temperature Pulse Rate 85 81 79 Respiratory Rate 16 16 16 Blood Pressure 135/63 139/61 139/63 Pulse Oximetry 94 L 91 L 96 12/10/18 18:00 12/10/18 20:00 12/10/18 20:56 Temperature 99.1 F Pulse Rate 78 80 Respiratory Rate 16 16 Blood Pressure 140/71 132/61 Pulse Oximetry 94 L 95 95 12/11/18 00:00 12/11/18 04:00 12/11/18 08:00 Temperature 98.7 F 98.8 F 98.1 F Pulse Rate 79 78 80 Respiratory Rate 16 16 18 Blood Pressure 130/61 136/63 125/78 Pulse Oximetry 94 L 93 L 98 Intake & Output 12/10/18 12/11/18 12/11/18 18:59 06:59 18:59 Intake Total 1036 / 1036 184 / 184 Output Total 100 / 100 Balance 1036 / 1036 84 / 84 Weight 78.7 kg 88 kg Intake: IV 86 / 86 184 / 184 Heparin/NS PF Inj 1,000 ML @ 0 20 / 20 mls/hr .ROUTE .[facility] Rx#: [id number] Aggrastat Inj 12,500 mcg In 250 66 / 66 ml @ 0 mls/hr .ROUTE .[facility] Rx#:[id number] Oral 500 / 500 Anesthesia Amount 450 / 450 Output: Urine 100 / 100 Other: # Voids 2 2 # Bowel Movements 0 - Constitutional no acute distress - Routine HEENT Exam Head: Present: normocephalic - Routine Neck Exam Present: supple - Routine Respiratory Exam Present: CTA bilaterally - Routine Cardiovascular Exam Present: S1, S2 - Routine Abdominal Exam Present: soft - Routine Extremities Exam Comments: no rae Results 12/11/18 04:15 12/11/18 04:15 Cardiac Enzymes 12/10/18 12/11/18 Range/Units 12:05 04:15 AST 66 H (15-37) U/L CK-MB (CK-2) 37.7 H (0.5-3.6) ng/mL Troponin I 5.77 H* (0.02-0.05) ng/mL Lipids 12/11/18 Range/Units 04:15 Triglycerides 75 (42-150) mg/dL Cholesterol 160 (120-200) mg/dL HDL Cholesterol 67.3 H (40.0-60.0) mg/dL Cholesterol/HDL Ratio 2.37 Ratio CBC 12/10/18 12/11/18 Range/Units 12:05 04:15 WBC 8.1 5.5 (4.0-11.0) th/mm3 RBC 4.28 3.64 L (4.00-5.30) mil/mm3 Hgb 13.3 11.5 L (11.6-15.3) gm/dL Hct 39.4 34.4 L (35.0-46.0) % Plt Count 194 156 (150-450) th/mm3 Neut # (Auto) 5.4 3.1 (1.8-7.7) th/mm3 Lymph # (Auto) 2.0 1.8 (1.0-4.8) th/mm3 Tripp # (Auto) 0.5 0.5 (0.0-0.9) th/mm3 Eos # (Auto) 0.1 0.1 (0.0-0.4) th/mm3 Baso # (Auto) 0.1 0.0 (0.0-0.2) th/mm3 Comprehensive Metabolic Panel 12/10/18 12/11/18 Range/Units 12:05 04:15 Sodium 140 142 (136-145) meq/L Potassium 3.5 3.7 (3.5-5.1) meq/L Chloride 105 108 H (98-107) meq/L Carbon Dioxide 28.1 27.5 (21.0-32.0) meq/L BUN 14 11 (7-18) mg/dL Creatinine 0.64 0.50 (0.50-1.00) mg/dL Calcium 9.2 7.6 L D (8.5-10.1) mg/dL AST 66 H (15-37) U/L ALT 28 (10-53) U/L Alkaline Phosphatase 103 (45-117) U/L Total Protein 7.3 (6.4-8.2) g/dL Albumin 3.8 (3.4-5.0) g/dL Intake and Output 12/10/18 12/11/18 12/11/18 22:59 06:59 14:59 Intake Total 566 / 566 184 / 184 Output Total 100 / 100 Balance 566 / 566 84 / 84 Intake: IV 66 / 66 184 / 184 Aggrastat Inj 12,500 mcg In 250 66 / 66 ml @ 0 mls/hr .ROUTE .[facility] Rx#:[id number] Oral 500 / 500 Output: Urine 100 / 100 Other: # Voids 2 2 # Bowel Movements 0 Weight 88 kg - Imaging and Cardiology Imaging: Impressions Chest X-Ray 12/10/18 12:02 CONCLUSION: No acute cardiopulmonary disease. Assessment and Plan - Assessment (1) STEMI (ST elevation myocardial infarction) Code(s): I21.3 - ST elevation (STEMI) myocardial infarction of unspecified site Status: Acute (2) CAD (coronary artery disease) Code(s): I25.10 - Atherosclerotic heart disease of [place] coronary artery without angina pectoris Status: Acute (3) Elevated LFTs Code(s): R94.5 - Abnormal results of liver function studies Status: Acute - Plan 1.) CAD - assymptomatic, pod # 1 bms prox rca, continue aspirin, plavix, coreg, altace; statin held due to elevated lfts Progress Note: Quality - AMI Clinical Trial Participant: No
--- NOTE | 2018-12-12 01:31 | ECG ---
Date Performed: 12/10/2018 Time Performed: 11:55:57 PTAGE: 78 years EKG: Sinus rhythm ST ELEVATION, CONSIDER INFERIOR INJURY ACUTE NC INTERPRETATION BASED ON A DEFAULT AGE OF 40 YE ARS PREVIOUS TRACING : 06/01/2009 16.56 Compared to previous tracing, ST elevations now note d inferiorly, acute STEMI DOCTOR: Hamlet Avila Interpretating Date/Time 12/12/2018 01:30:09
--- NOTE | 2018-12-12 02:22 | ECG ---
Date Performed: 12/10/2018 Time Performed: 18:02:48 PTAGE: 78 years EKG: Sinus rhythm with borderline 1st degree A-V block Extensive T wave changes may be due to myocardial ischemia Poss ible recent inferior infarction Abnormal ECG Compared to PREVIOUS TRACING , ST elevations inferiorly have decreased DOCTOR: Hamlet Avila Interpretating Date/Time 12/12/2018 02:22:01
[2018-12-12 04:43] VITALS: RESP 18
[2018-12-12 08:57] LABS: Alanine Aminotransferase 28 U/L (10-53); Albumin 3.1 g/dL (3.4-5.0); Anion Gap 7 meq/L (5-15); Aspartate Aminotransferase 49 U/L (15-37); Blood Urea Nitrogen 12 mg/dL (7-18); Calcium 8.1 mg/dL (8.5-10.1); Carbon Dioxide 27.5 meq/L (21.0-32.0); Chloride 108 meq/L (98-107); Glomerular Filtration Rate Greater Than 89 mL/min (>89); Glucose,Random 98 mg/dL (74-106); Sodium 142 meq/L (136-145)
[2018-12-12 08:58] LABS: Alkaline Phosphatase 82 U/L (45-117); Potassium 4.1 meq/L (3.5-5.1); Total Protein 6.4 g/dL (6.4-8.2)
[2018-12-12] MEDS: Ramipril 2.5 MG Capsule PO SCH (09:08)
[2018-12-12 10:21] VITALS: BP 134/68; TEMP 99.5; O2SAT 94
--- NOTE | 2018-12-12 11:03 | P.PNIM ---
Subjective Interval history: feeling well. no chest pain. Physical Exam Vital signs: Vital Signs 12/11/18 12:00 12/11/18 13:41 12/11/18 15:00 Temperature 98.0 F 97.9 F Pulse Rate 79 79 69 Respiratory Rate 18 17 Blood Pressure 128/62 115/56 L Pulse Oximetry 96 98 12/11/18 15:54 12/11/18 16:00 12/11/18 17:00 Temperature 97.6 F Pulse Rate 74 72 78 Respiratory Rate 17 Blood Pressure 117/60 Pulse Oximetry 98 12/11/18 18:36 12/11/18 19:00 12/11/18 20:00 Temperature 98.7 F Pulse Rate 80 81 86 Respiratory Rate 20 Blood Pressure 127/65 Pulse Oximetry 99 12/11/18 21:00 12/11/18 22:00 12/11/18 23:00 Temperature Pulse Rate 80 74 82 Respiratory Rate Blood Pressure Pulse Oximetry 12/12/18 00:00 12/12/18 01:00 12/12/18 02:00 Temperature 98.2 F Pulse Rate 96 H 78 93 H Respiratory Rate 16 Blood Pressure 118/63 Pulse Oximetry 97 12/12/18 03:00 12/12/18 04:00 12/12/18 05:00 Temperature 98 F Pulse Rate 89 78 73 Respiratory Rate 18 Blood Pressure 127/85 Pulse Oximetry 93 L 12/12/18 06:00 12/12/18 07:00 12/12/18 08:00 Temperature 99.5 F Pulse Rate 71 74 76 Respiratory Rate 18 Blood Pressure 134/68 Pulse Oximetry 94 L Intake & Output 12/11/18 12/12/18 12/12/18 18:59 06:59 18:59 Intake Total 240 / 240 360 / 360 Output Total 450 / 450 Balance 240 / 240 -90 / -90 Weight 82 kg 81 kg Intake: Oral 240 / 240 360 / 360 Output: Urine 450 / 450 Other: # Voids 4 Date of Last Bowel Movement 12/09/18 12/11/18 Weight On Admission 82 kg Narrative: GENERAL: elderly lady laying in bed, not in distress. NECK:no JVD CARDIOVASCULAR: Regular rate and rhythm without murmurs, gallops, or rubs. RESPIRATORY: Clear to auscultation. Breath sounds equal bilaterally. No wheezes , rales, or rhonchi. GASTROINTESTINAL: Abdomen soft, non-tender, nondistended. Normal active bowel sounds MUSCULOSKELETAL: Extremities without clubbing, cyanosis, or edema. NEURO: Alert & Oriented x4 to person, place, time, situation. Moves all ext x4 Results Labs CBC & Chem 7: 12/11/18 04:15 12/12/18 07:33 Assessment and Plan (1) STEMI (ST elevation myocardial infarction): Code(s): I21.3 - ST elevation (STEMI) myocardial infarction of unspecified site Status: Acute (2) CAD (coronary artery disease): Code(s): I25.10 - Atherosclerotic heart disease of [place] coronary artery without angina pectoris Status: Acute (3) Elevated LFTs: Code(s): R94.5 - Abnormal results of liver function studies Status: Acute Plan 78 yo F with h/o HTN and Hypothyroidism who presented with 2 day h/o chest pressure radiating to the jaw and left arm,admitted with subacute STEMI of inferior region and is now s/p [facility], PCI with bear metal stent to mid RCA by . On Tirofiban drip, Aspirin 162mg, Plavix 75mg, Carvedilol 3.125mg bid, Ramipril 2.5mg. d/w Dr. Biggs over the phone, says patient can be discharged today since she remains asymptomatic. Statin is on hold due to elevated liver enzymes. Discharge on Aspirin 162mg, Plavix 75mg, Carvedilol 3.125mg bid, Ramipril 2.5mg. Losartan discontinued. Patient instructed to follow up with Dr. Biggs within 1-2 weeks. Progress Note: Quality AMI Clinical Trial Participant: No VTE Deep Vein Thrombosis/Pulmonary Embolism Present on Admission: No _ (1) CAD (coronary artery disease) Qualifiers: Associated angina: Coronary Disease-Associated Artery/Lesion type: [place] vs. transplanted heart: (2) STEMI (ST elevation myocardial infarction) Qualifiers: Involved coronary artery:
--- NOTE | 2018-12-12 14:00 | P.DS ---
DS: Providers Date of admission: 12/10/18 12:30 Primary care physician: Corona Rubio MD Consults: 12/10/18 13:40 Consult to Hospitalist Routine Consulting Provider: Soco Ovalle Reason for Consultation: cad Notified:: Service Spoke with:: SHAUNA Date Notified:: 12/10/18 Time Notified:: 15:07 Ordering Provider: YESENIA Brief History from admission: 78 yo F with h/o HTN and Hypothyroidism who presented with 2 day h/o chest pressure radiating to the jaw and left arm. Patient thought it was indigestion initially. She presented to [place] [facility] ER today,ECG showed ST elevation in inferior leads with qwaves, and STEMI alert was called. Patient was evaluated by Dr. Biggs, left heart catheterization culprit lesion was thought to be a subtotally occluded proximal mid RCA lesion with significant amount of thrombus, PCI with bear metal stent. Patient is currently on Tirofiban drip, aspirin,plavix,carvedilol, and ramipril. She is complaining of soreness of left side of her chest at present. No chest pressure. Other than that she feels fine. Labs reviewed. DS: Diagnosis Discharge Diagnosis (1) STEMI (ST elevation myocardial infarction): Status: Acute (2) CAD (coronary artery disease): Status: Acute (3) Elevated LFTs: Status: Acute DS: Summary 78 yo F with h/o HTN and Hypothyroidism who presented with 2 day h/o chest pressure radiating to the jaw and left arm,admitted with subacute STEMI of inferior region and is now s/p [facility], PCI with bear metal stent to mid RCA by . She was on Tirofiban drip, Aspirin 162mg, Plavix 75mg, Carvedilol 3.125mg bid, Ramipril 2.5mg. Initially on a statin as well, however,it was discontinued due to elevated liver transaminases. Patient remained asymptomatic after PCI and throughout her hospital stay. She was discharge on Aspirin 162mg, Plavix 75mg, Carvedilol 3.125mg bid, Ramipril 2.5mg. Losartan discontinued. Patient is to follow up with Dr. Biggs in 1-2 weeks. Time Spent with Patient Total time spent providing and/or coordinating discharge services:>30 minutes Quality: AMI Clinical Trial Participant: No Quality: VTE Deep Vein Thrombosis/Pulmonary Embolism Present on Admission: No Exam Narrative Exam Narrative: GENERAL: elderly lady laying in bed, not in distress. NECK:no JVD CARDIOVASCULAR: Regular rate and rhythm without murmurs, gallops, or rubs. RESPIRATORY: Clear to auscultation. Breath sounds equal bilaterally. No wheezes , rales, or rhonchi. GASTROINTESTINAL: Abdomen soft, non-tender, nondistended. Normal active bowel sounds MUSCULOSKELETAL: Extremities without clubbing, cyanosis, or edema. NEURO: Alert & Oriented x4 to person, place, time, situation. Moves all ext x4 Results Labs on day of discharge: Labs from last 24 hours 12/12/18 07:33 Sodium 142 Potassium 4.1 Chloride 108 H Carbon Dioxide 27.5 Anion Gap 7 BUN 12 Creatinine 0.54 Estimated GFR Greater than 89 Random Glucose 98 Calcium 8.1 L Total Bilirubin 0.4 AST 49 H ALT 28 Alkaline Phosphatase 82 Total Protein 6.4 D Albumin 3.1 L D Impressions ITS Impressions Chest X-Ray 12/10/18 12:02 CONCLUSION: No acute cardiopulmonary disease. Discharge Plan Discharge Disposition Patient Disposition: Discharge Home Discharge Condition Condition: Stable Discharge Order Discharge Orders: Discharge Order (Routine); Ordered 12/12/18 Ordered By: Soco Ovalle Discharge Details Anticipated Discharge Date: 12/12/18 Physicians Team ED Provider: Sahara Mark Primary Care Provider: Corona Rubio Attending Provider: Soco Ovalle Rxs /Orders / Referrals /Forms Prescriptions: New clopidogrel [Plavix] 75 mg Tablet 75 mg PO DAILY Qty: 30 RF: 11 carvedilol [Coreg] 3.125 mg Tablet 3.125 mg PO BID Qty: 60 RF: 0 aspirin 81 mg Tablet,Chewable 162 mg PO DAILY Qty: 60 RF: 11 ramipril 2.5 mg Capsule 2.5 mg PO DAILY Qty: 30 RF: 0 Continue levothyroxine 125 mcg Tablet 125 mcg PO DAILY RF: 0 Discontinued losartan 25 mg Tablet 25 mg PO HS RF: 0 Referrals: Elijah Biggs MD [Physician] - See Instructions Corona Rubio MD [Primary Care Provider] - See Instructions Discharge Instructions Patient Printed Instructions: Chest Pain (ED) Status ED Status: Left Department
[2018-12-12 15:47] VITALS: PULSE 73
== END 2018-12-12 15:00 | disposition home or self-care (01) | DRG 249 ==
LOC: PHED 11:51 → PHEDH 12:28 → HCPC 14:45 → HCIS 12-11 12:50
PROVIDERS: ADMIT Hospitalist; ATTEND Hospitalist
DX: Z79.899 Other long term (current) drug therapy; R74.0 Nonspecific elevation of levels of transaminase and lactic acid dehydrogenase [LDH]; I21.3 ST elevation (STEMI) myocardial infarction of unspecified site; I10 Essential (primary) hypertension; R94.5 Abnormal results of liver function studies; E03.9 Hypothyroidism, unspecified; Z79.890 Hormone replacement therapy; R79.89 Other specified abnormal findings of blood chemistry; M54.9 Dorsalgia, unspecified; Z90.49 Acquired absence of other specified parts of digestive tract; Z87.891 Personal history of nicotine dependence; I25.119 Atherosclerotic heart disease of native coronary artery with unspecified angina pectoris
CPT/HCPCS: 71010; 71045; 80048; 80053; 80061; 82550; 82552; 84484; 85002; 85025; 92941; 93005; 93454; 93458; 99152; 99153; 99285; C1725; C1769; C1874; C1887; C1893; J1644; J2250; J2270; J2405; J3010; J3246; Q9967